=== PATIENT | female | born 1990 | race Caucasian/White ===

== ENCOUNTER 2017-07-30 07:24 | Emergency (ER) | payer OTHER ==
[2017-07-30 07:28] VITALS: BMI 24.7
--- NOTE | 2017-07-30 07:43 | PDOC ---
History of Present Illness - General History Source: Patient Exam Limitations: No Limitations - History of Present Illness Initial Comments: 07/30/17 08:09 The patient is a 27 year old female (8 weeks ), with a significant past medical history of Anxiety who presents to the emergency department with diarrhea and epigastric pain since last night. Patient reports mild, intermittent, crampy epigastric pain with 2 episodes of diarrhea (nonbloody, nonmucoid). Patient reports onset of these symptoms after eating yogurt last night. Patient also endorses increased urinary frequency however denies any dysuria, urgency or hematuria. Patient denies any lower abdominal cramping, vaginal discharge or bloody discharge. She denies chest pain, headache or dizziness. She denies fever, chills, nausea, vomit or constipation. Allergies: peanut Past surgical history: tonsillectomy/adenoids, hemorrhoid Social history: none PCP: Dr. Melgar Recent Travel: Yes ([place]-- End may) <Odilia Mccall - Last Filed: 07/30/17 10:05> <Angela Rodriguez - Last Filed: 07/30/17 14:44> - General Chief Complaint: Diarrhea Stated Complaint: 8 WKS PREG, DIARRHEA Time Seen by Provider: 07/30/17 07:41 Past History <Odilia Mccall - Last Filed: 07/30/17 10:05> - Past Medical History Psychiatric Problems: Yes (anxiety) - Suicide/Smoking/Psychosocial Hx Smoking History: Never smoked Information on smoking cessation initiated: No Hx Alcohol Use: No Drug/Substance Use Hx: No Substance Use Type: None <Angela Rodriguez - Last Filed: 07/30/17 14:44> - Past Medical History Allergies/Adverse Reactions: Allergies Allergy/AdvReac Type Severity Reaction Status Date / Time peanut Allergy Difficulty Verified 07/30/17 07:28 Breathing Home Medications: Ambulatory Orders Doxylamine/Pyridoxine HCl [Camilla Trammell 10-10 mg Tablet] 1 each PO ASDIR Pnv No.122/Iron/Folic Acid [ Multi Tablet] 1 each PO DAILY 07/30/17 Review of Systems - Review of Systems Able to Perform ROS?: Yes Comments:: 07/30/17 08:09 GENERAL/CONSTITUTIONAL: No fever or chills. No weakness. HEAD, EYES, EARS, NOSE AND THROAT: No change in vision. No ear pain or discharge. No sore throat. GASTROINTESTINAL: +diarrhea. +epigastric pain. No nausea, vomiting, constipation. GENITOURINARY: No dysuria, frequency, or change in urination. CARDIOVASCULAR: No chest pain or shortness of breath. RESPIRATORY: No cough, wheezing, or hemoptysis. MUSCULOSKELETAL: No joint or muscle swelling or pain. No neck or back pain. SKIN: No rash NEUROLOGIC: No headache, vertigo, loss of consciousness, or change in strength/ sensation. ENDOCRINE: No increased thirst. No abnormal weight change. HEMATOLOGIC/LYMPHATIC: No anemia, easy bleeding, or history of blood clots. ALLERGIC/IMMUNOLOGIC: No hives or skin allergy. <Odilia Mccall - Last Filed: 07/30/17 10:05> *Physical Exam - Vital Signs Last Vital Signs Temp Pulse Resp BP Pulse Ox 98.5 F 82 19 114/76 99 07/30/17 07:26 07/30/17 07:26 07/30/17 07:26 07/30/17 07:26 07/30/17 07:26 - Physical Exam Comments: 07/30/17 08:09 GENERAL: Awake, alert, and fully oriented, in no acute distress HEAD: No signs of trauma EYES: PERRLA, EOMI, sclera anicteric, conjunctiva clear ENT: Auricles normal inspection, hearing grossly normal, nares patent, oropharynx clear without exudates. Moist mucosa NECK: Normal ROM, supple, no lymphadenopathy, JVD, or masses LUNGS: Breath sounds equal, clear to auscultation bilaterally. No wheezes, and no crackles HEART: Regular rate and rhythm, normal S1 and S2, no murmurs, rubs or gallops ABDOMEN: +mild epigastric tenderness. Soft, nontender, normoactive bowel sounds. No guarding, no rebound. No masses EXTREMITIES: Normal range of motion, no edema. No clubbing or cyanosis. No cords, erythema, or tenderness NEUROLOGICAL: Cranial nerves II through XII grossly intact. Normal speech, normal gait SKIN: Warm, Dry, normal turgor, no rashes or lesions noted. <Odilia Mccall - Last Filed: 07/30/17 10:05> - Vital Signs Last Vital Signs Temp Pulse Resp BP Pulse Ox 98.5 F 82 19 114/76 99 07/30/17 07:26 07/30/17 07:26 07/30/17 07:26 07/30/17 07:26 07/30/17 07:26 <Angela Rodriguez - Last Filed: 07/30/17 14:44> ED Treatment Course - LABORATORY CBC & Chemistry Diagram: 07/30/17 08:25 07/30/17 08:25 <Odilia Mccall - Last Filed: 07/30/17 10:05> - LABORATORY CBC & Chemistry Diagram: 07/30/17 08:25 07/30/17 08:25 <Angela Rodriguez - Last Filed: 07/30/17 14:44> Medical Decision Making - Medical Decision Making 07/30/17 11:10 Pt passed PO challenge, but still has epigastric pain. Still appears slightly dehydrated. Will give additional liter of IVF (will change to NS, as first liter was LR) and a dose of pepcid. Also of note- she is 8 WGA, had a confirmatory outpatient ultrasound. 07/30/17 11:58 Reassessed. She is just receiving the pepcid and has started the NS. Will cont to monitor. 07/30/17 13:17 Fluid is complete. Stable for DC home. No signs of acute abdomen. <Angela Rodriguez - Last Filed: 07/30/17 14:44> *DC/Admit/Observation/Transfer - Attestations Scribe Attestion: 07/30/17 08:09 Documentation prepared by Odilia Mccall, acting as emergency medical dispatcher for Angela Rodriguez MD <Odilia Mccall - Last Filed: 07/30/17 10:05> - Discharge Dispostion Admit: No <Angela Rodriguez - Last Filed: 07/30/17 14:44> Diagnosis at time of Disposition: Epigastric pain, Volume depletion Diarrhea Qualifiers: Diarrhea type: unspecified type Qualified Code(s): R19.7 - Diarrhea, unspecified - Discharge Dispostion Condition at time of disposition: Stable - Referrals Referrals: Maria Guadalupe Melgar [Primary Care Provider] - - Patient Instructions Printed Discharge Instructions: DI for Diarrhea and Traveler's Diarrhea -- Adult - Post Discharge Activity Forms/Work/School Notes: Back to Work
[2017-07-30] MEDS ORDERED: LACTATED RINGERS SOLUTION 1,000 ML IV SCH (08:00)
[2017-07-30 08:29] LABS: BASOPHIL 0.5 % (0-2.0); EOSINOPHIL 1.5 % (0-4.5); MCH 31.9 pg (25.7-33.7); MCHC 34.1 g/dl (32.0-36.0); MEAN CELL VOLUME 93.6 fl (80-96); NEUTROPHILS 73.2 % (42.8-82.8); PLATELET COUNT 200 K/MM3 (134-434); RDW 13.4 % (11.6-15.6); WHITE BLOOD COUNT 6.9 K/mm3 (4.0-10.0)
[2017-07-30 08:57] LABS: ALBUMIN 3.7 g/dl (3.4-5.0); ANION GAP 7 (8-16); BILIRUBIN,TOTAL 0.4 mg/dL (0.2-1.0); CALCIUM 8.9 mg/dL (8.5-10.1); CO2 26 mmol/L (21-32); CREATININE 0.6 mg/dL (0.55-1.02); GLUCOSE,RANDOM 91 mg/dL (74-106); SGOT/AST 9 U/L (15-37); SGPT/ALT 18 U/L (12-78); TOT PROT 6.8 g/dl (6.4-8.2)
[2017-07-30 09:12] LABS: ALK PHOS 39 U/L (45-117)
[2017-07-30 09:45] LABS: URINE APPEARANCE SLCLOUDY; URINE BILIRUBIN NEGATIVE (NEGATIVE); URINE BLOOD NEGATIVE (NEGATIVE); URINE COLOR YELLOW; URINE GLUCOSE (UA) NEGATIVE (NEGATIVE); URINE KETONE NEGATIVE (NEGATIVE); URINE NITRITE NEGATIVE (NEGATIVE); URINE PROTEIN NEGATIVE (NEGATIVE); URINE UROBILINOGEN NEGATIVE mg/dL (0.2-1.0)
[2017-07-30] MEDS ORDERED: SODIUM CHLORIDE 1,000 ML IV STA (10:11)
[2017-07-30] MEDS ORDERED: FAMOTIDINE 20 MG/50 ML IVPB 50 ML IVPB ONE ×2 (10:13→11:34)
[2017-07-30 13:21] VITALS: BP 103/66; PULSE 76; TEMP 98.1
[2017-07-30 13:26] LABS: URINE LEUK ESTERASE Negative (NEGATIVE)
== END 2017-07-30 13:21 | disposition home or self-care (01) ==
LOC: JER 07:24
PROC: 3E033GC Introduction of Other Therapeutic Substance into Peripheral Vein, Percutaneous Approach (ICD-10-PCS; principal; 2017-07-30)
PROC: 3E0337Z Introduction of Electrolytic and Water Balance Substance into Peripheral Vein, Percutaneous Approach (ICD-10-PCS; 2017-07-30)
DX: R19.7 Diarrhea, unspecified (principal); R10.13 Epigastric pain; O26.891 Other specified pregnancy related conditions, first trimester; Z3A.08 8 weeks gestation of pregnancy
CPT/HCPCS: 36415; 80053; 81003; 83690; 84702; 85025; 99283-25

== ENCOUNTER 2017-09-03 20:31 | Emergency (ER) | payer OTHER ==
[2017-09-03] MEDS ORDERED: SODIUM CHLORIDE 0.9% 1000 ML INFUS.BAG IV ONE (20:53)
[2017-09-03 20:54] VITALS: BMI 24.5
--- NOTE | 2017-09-03 20:54 | PDOC ---
Rapid Medical Evaluation Medical Evaluation: Allergies Allergy/AdvReac Type Severity Reaction Status Date / Time peanut Allergy Difficulty Verified 07/30/17 07:28 Breathing 09/03/17 20:49 I have performed a brief in-person evaluation of this patient. The patient presents with a chief complaint of: , vomiting 10+ times today LMP 8/14, 13 wks preg, denies diarrhea, last BM today, denies vaginal bleeding, sore throat/sneezing/congestion - requests flu/strep tests, Tmax 99.9F. taking tylenol q8h, diclegis max dose (4 pills daily), OB Dr Ribeiro I have ordered the following: CBC, CMP, IVF, zofran, UA, UC, flu/strep swab The patient will proceed to the ED for further evaluation.
[2017-09-03 21:17] LABS: BASOPHIL 1.2 % (0-2.0); EOSINOPHIL 0.1 % (0-4.5); MCH 31.5 pg (25.7-33.7); MCHC 34.3 g/dl (32.0-36.0); MEAN CELL VOLUME 91.8 fl (80-96); MEAN PLT VOLUME 7.8 fl (7.5-11.1); NEUTROPHILS 91.4 % (42.8-82.8); PLATELET COUNT 211 K/MM3 (134-434); RDW 12.9 % (11.6-15.6); WHITE BLOOD COUNT 13.6 K/mm3 (4.0-10.0)
[2017-09-03 21:54] LABS: ALBUMIN 3.4 g/dl (3.4-5.0); ANION GAP 7 (8-16); CALCIUM 8.5 mg/dL (8.5-10.1); CO2 24 mmol/L (21-32); CREATININE 0.6 mg/dL (0.55-1.02); GLUCOSE,RANDOM 101 mg/dL (74-106); SGOT/AST 6 U/L (15-37); SGPT/ALT 16 U/L (12-78)
[2017-09-03 21:56] LABS: ALK PHOS 37 U/L (45-117); BILIRUBIN,TOTAL 0.7 mg/dL (0.2-1.0); TOT PROT 6.5 g/dl (6.4-8.2)
[2017-09-03] MEDS ORDERED: METOCLOPRAMIDE HCL INJECTION 10 MG/2 ML VIAL IVPUSH ONE (22:41)
[2017-09-03] MEDS ORDERED: METOCLOPRAMIDE HCL INJECTION 10 MG/2 ML VIAL ONE (22:54)
--- NOTE | 2017-09-04 00:20 | PDOC ---
History of Present Illness - General Chief Complaint: Nausea/Vomiting Stated Complaint: VOMITING (13 WKS ) Time Seen by Provider: 09/03/17 20:58 History Source: Patient Exam Limitations: No Limitations - History of Present Illness Initial Comments: 09/04/17 00:20 27f G1Po 13 weeks present with non-stop vomiting since waking up this morning as well as sore throat and intermittent abdominal cramping. She has been treating her normaly daily vomiting 1x episode with Doxilamine, but had to take 4 doses today. She has had sore throat for the past couple days. Last OBGYN visit 2 weeks ago with transvaginal ultrasound and blood work normal. 09/04/17 00:24 Came to our ED last month with vomiting and diarrhea, likely viral illness. Past History - Past Medical History Allergies/Adverse Reactions: Allergies Allergy/AdvReac Type Severity Reaction Status Date / Time peanut Allergy Difficulty Verified 07/30/17 07:28 Breathing Home Medications: Ambulatory Orders Doxylamine/Pyridoxine HCl [Diclegis Dr 10-10 mg Tablet] 1 each PO ASDIR Pnv No.122/Iron/Folic Acid [ Multi Tablet] 1 each PO DAILY 07/30/17 Metoclopramide HCl [Reglan -] 10 mg PO TID #21 tablet 09/04/17 COPD: No Psychiatric Problems: Yes (anxiety) - Reproductive History (#): 2 Para: 0 - Suicide/Smoking/Psychosocial Hx Smoking History: Never smoked Have you smoked in the past 12 months: No Information on smoking cessation initiated: No Hx Alcohol Use: No Drug/Substance Use Hx: No Substance Use Type: None Review of Systems - Review of Systems Able to Perform ROS?: Yes Is the patient limited Malay proficient: No Constitutional: No: Symptoms Reported, Chills, Fever HEENTM: No: Symptoms Reported Respiratory: No: Symptoms reported Cardiac (ROS): No: Symptoms Reported ABD/GI: Yes: See HPI, Nausea, Vomiting, Abdominal cramping : No: Symptoms Reported All Other Systems: Reviewed and Negative *Physical Exam - Vital Signs Last Vital Signs Temp Pulse Resp BP Pulse Ox 99 F 110 H 18 120/74 96 09/03/17 20:49 09/03/17 20:49 09/03/17 20:49 09/03/17 20:49 09/03/17 20:49 - Physical Exam General Appearance: Yes: Nourished, Appropriately Dressed, Mild Distress HEENT: positive: EOMI, BIENVENIDO Neck: negative: Tender Respiratory/Chest: positive: Lungs Clear, Normal Breath Sounds. negative: Chest Tender, Respiratory Distress Cardiovascular: positive: Regular Rhythm, Regular Rate, S1, S2 Gastrointestinal/Abdominal: positive: Normal Bowel Sounds, Protuberent. negative: Tender Extremity: positive: Normal Capillary Refill ED Treatment Course - LABORATORY CBC & Chemistry Diagram: 09/03/17 21:00 09/03/17 21:00 - ADDITIONAL ORDERS Additional order review: Laboratory Results 09/03/17 21:00 Sodium 134 L Potassium 3.7 Chloride 103 Carbon Dioxide 24 Anion Gap 7 L BUN 5 L D Creatinine 0.6 Creat Clearance w eGFR > 60 Random Glucose 101 Calcium 8.5 Total Bilirubin 0.7 D AST 6 L D ALT 16 Alkaline Phosphatase 37 L Total Protein 6.5 Albumin 3.4 09/03/17 21:00 Influenza Types A,B Antigen (ROBERT) - Final Nasopharyngeal Swab - Final 09/03/17 21:00 Group A Strep Rapid Antigen - Final Throat 09/03/17 21:00 RBC 4.10 MCV 91.8 MCHC 34.3 RDW 12.9 MPV 7.8 Neutrophils % 91.4 H D Lymphocytes % 4.2 L D Monocytes % 3.1 L Eosinophils % 0.1 D Basophils % 1.2 - RADIOLOGY Radiology Studies Ordered: Category Date Time Status <14WKS US [US] Stat Ultrasound 09/03/17 22:46 Taken - Medications Given in the ED: ED Medications Discontinued Medications Generic Name Dose Route Start Last Admin Trade Name Danny PRN Reason Stop Dose Admin Metoclopramide HCl 10 mg 09/03/17 22:41 09/03/17 23:00 Reglan Injection - IVPUSH 09/03/17 22:42 10 mg ONCE ONE Administration Sodium Chloride 1,000 ml 09/03/17 20:53 09/03/17 22:04 Normal Saline - IV 09/03/17 20:54 1,000 ml ONCE ONE Administration Medical Decision Making - Medical Decision Making 09/04/17 03:48 27f G1Po 13 weeks present with non-stop vomiting since waking up this morning as well as sore throat and intermittent abdominal cramping. labs and transvaginal ultrasound ordered. Single live IUP estimated gestational age of 14w in breech position. Normal heart rate. No subchorionic bleed. No significant free fluid. Patient given reglan and fluids. UA negative for infection Feels better ok to be D/c home Follow up with obgyn *DC/Admit/Observation/Transfer Diagnosis at time of Disposition: Vomiting - Discharge Dispostion Disposition: HOME Admit: No - Prescriptions Prescriptions: Metoclopramide HCl [Reglan -] 10 mg PO TID #21 tablet - Referrals - Patient Instructions Printed Discharge Instructions: DI for Vomiting -- Adult Additional Instructions: Follow up with OBGYN withing the week Return to ER if symptoms persist despite medication, or for any new, worsening or concerning symptoms such as loss of consciousness,fever, vomiting blood, or bloody vaginal discharge. - Post Discharge Activity Forms/Work/School Notes: Back to Work
--- NOTE | 2017-09-04 00:23 | PDOC ---
Attending Attestation - Resident Resident Name: JaradJett - ED Attending Attestation I have performed the following: I have examined & evaluated the patient, The case was reviewed & discussed with the resident, I agree w/resident's findings & plan, Exceptions are as noted - HPI HPI: 09/04/17 00:19 Patient is a 27 year old female,14 weeks ,, with a significant past medical history of anxiety who presents to the ED with complaints of vomiting that began this morning. Patient reports experiencing sore throat 2 days ago while at home. She reports sore throat intensity has increased in the last 2 days secondary to vomiting. Patient reports experiencing diffuse abdominal pain, nausea and headache secondary to vomiting. Patient does not state the number of episodes of vomiting that occurred today but states it has been virtually all day non stop vomiting since the morning. She reports vomiting x1 per day is normal baseline for . Reports also intermittent lower abd cramping. 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 Patient reports taking 6 doses of Doxylamine for nausea and vomiting throughout the day. 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 Denies hematuria, vaginal bleeding. chest pain, SOB. Denies fever, chills. Denies contact with sick individuals, out of state travel. Denies any other symptoms. Allergies: Peanut allergy Social history: No smoking. No alcohol. No smoking Surgical history: tonsillectomy/adenoids, hemorrhoid PMD: None - Physicial Exam PE: 09/04/17 00:20 GENERAL: Awake, alert, and fully oriented, in no acute distress HEAD: No signs of trauma EYES: PERRLA, EOMI, sclera anicteric, conjunctiva clear ENT: Auricles normal inspection, hearing grossly normal, nares patent, oropharynx slightly erythematous without exudates or petechiae. Moist mucosa NECK: Normal ROM, supple, no lymphadenopathy, JVD, or masses LUNGS: Breath sounds equal, clear to auscultation bilaterally. No wheezes, and no crackles HEART: Regular rate and rhythm, normal S1 and S2, no murmurs, rubs or gallops ABDOMEN: Soft, nontender, normoactive bowel sounds. No guarding, no rebound. 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 No clubbing or cyanosis. No cords , erythema, or tenderness NEUROLOGICAL: Normal speech, cranial nerves intact, negative pronator drift, 5/ 5 strength in all 4 extremities, normal sensation to light touch in all 4 extremities, normal cerebellar exam, normal gait, normal reflexes and tone SKIN: Warm, Dry, normal turgor, no rashes or lesions noted. - Medical Decision Making 09/04/17 00:20 27-year-old female currently 14 weeks presents with nausea and nonbloody nonbilious emesis since this morning. Patient also reporting intermittent lower abdominal cramping. No vaginal bleeding. Vitals initially remarkable for tachycardia to 110 however heart rate on my exam is 98. Differential includes but not limited to viral syndrome versus hyperemesis gravidarum versus spontaneous . Plan: -labs -US -UA -IVF -antiemetics -reassess 09/04/17 02:53 Labs, UA unremarkable. US wnl. Pt tolerating PO after reglan. Likely emesis due to viral syndrome I discussed the physical exam findings, ancillary test results and final diagnoses with the patient. I answered all of the patient's questions. The patient was satisfied with the care received and felt comfortable with the discharge plan and treatment plan. The patient will call their primary care physician within 24 hours to arrange follow-up and will return to the Emergency Department with any new, persistent or worsening symptoms.
[2017-09-04 01:47] LABS: URINE APPEARANCE SLCLOUDY; URINE BILIRUBIN NEGATIVE (NEGATIVE); URINE BLOOD NEGATIVE (NEGATIVE); URINE COLOR YELLOW; URINE GLUCOSE (UA) NEGATIVE (NEGATIVE); URINE KETONE 2+ (NEGATIVE); URINE NITRITE NEGATIVE (NEGATIVE); URINE PROTEIN NEGATIVE (NEGATIVE); URINE UROBILINOGEN NEGATIVE mg/dL (0.2-1.0)
[2017-09-04 03:50] VITALS: BP 107/63; PULSE 109; TEMP 98.7
[2017-09-04 14:23] LABS: URINE LEUK ESTERASE Negative (NEGATIVE)
== END 2017-09-04 03:52 | disposition home or self-care (01) ==
LOC: JER 20:31
PROC: 3E033GC Introduction of Other Therapeutic Substance into Peripheral Vein, Percutaneous Approach (ICD-10-PCS; principal; 2017-09-03)
PROC: 3E0337Z Introduction of Electrolytic and Water Balance Substance into Peripheral Vein, Percutaneous Approach (ICD-10-PCS; 2017-09-03)
DX: O26.891 Other specified pregnancy related conditions, first trimester (principal); Z3A.13 13 weeks gestation of pregnancy; R11.10 Vomiting, unspecified
CPT/HCPCS: 36415; 76801-TC; 80053; 81003; 85025; 87070; 87086; 87430; 87804; 99282-25

== ENCOUNTER 2020-11-05 14:35 | Emergency (ER) | payer OTHER | END 2020-11-05 15:55 | disposition home or self-care (01) | LOC: JVIRT 14:35 | DX: Z20.822 Contact with and (suspected) exposure to COVID-19 (principal) | CPT/HCPCS: C9803; G2012-GT; U0003 ==